=== PATIENT | male | born 1940 | race Caucasian/White ===

== ENCOUNTER 2019-01-06 08:59 | Day surgery (SDC) | payer MEDICARE, OTHER ==
[2019-01-06] VITALS (8 sets, daily range): BP systolic 113–142; BP diastolic 64–87
[~2019-01-06] VITALS: Ht 175.3 cm; Wt 71.1 kg
[2019-01-06] MEDS ORDERED: sod bicarbonate 150mEq in D5W 1,150 ML IV ONE (09:30)
[2019-01-06] MEDS ORDERED: diphenhydrAMINE 25mg capsule PO PRN (09:30)
[2019-01-06 09:52] LABS: BASOPHILS # (AUTO) 0.1 X10'3 (0-0.2); BASOPHILS % (AUTO) 0.8 % (0-1); EOSINOPHILS # (AUTO) 0.1 X10'3 (0-0.9); EOSINOPHILS % (AUTO) 0.7 % (0-6); HEMATOCRIT 43.6 % (42.0-52.0); HEMOGLOBIN 14.6 g/dl (14.0-17.9); LYMPHOCYTES # (AUTO) 0.9 X10'3 (1.1-4.8); MEAN CORPUSCULAR HEMOGLOBIN 33.4 PG (27.0-31.0); MEAN CORPUSCULAR HGB CONC 33.5 g/dL (33.0-36.5); MEAN CORPUSCULAR VOLUME 99.5 FL (78-98); MEAN PLATELET VOLUME 7.7 FL (7.4-10.4); MONOCYTES # (AUTO) 0.5 X10'3 (0-0.9); MONOCYTES % (AUTO) 7.3 % (2-12); NEUTROPHILS # (AUTO) 5.4 X10'3 (1.8-7.7); NEUTROPHILS % (AUTO) 78.2 % (42-75); PLATELET COUNT 266 X10'3 (140-440); RED BLOOD COUNT 4.39 X10'6 (4.70-6.10); RED CELL DISTRIBUTION WIDTH 13.4 % (11.5-14.5); WHITE BLOOD COUNT 6.9 X10'3 (4.5-11.0)
[2019-01-06 09:56] LABS: ALBUMIN 3.4 G/DL (3.4-5.0); ANION GAP 9 (8-16); BLOOD UREA NITROGEN 18 MG/DL (7-18); BUN/CREATININE RATIO 19.1 (5.4-32.0); CALCIUM 9.2 MG/DL (8.5-10.1); CHLORIDE 102 MMOL/L (99-107); CREATININE 0.94 MG/DL (0.60-1.10); GLUCOSE 110 MG/DL (70-104); MAGNESIUM 1.9 MG/DL (1.5-2.4); POTASSIUM 3.9 MMOL/L (3.5-5.1); SODIUM 139 MMOL/L (135-145); TOTAL CARBON DIOXIDE 28.4 MMOL/L (24-32); eGFR 77 ML/MIN
[2019-01-06 09:57] LABS: PROTHROMBIN TIME 10.3 SECONDS (9.0-12.0)
[2019-01-06] MEDS ORDERED: CALC-1140 PO (10:05)
[2019-01-06] MEDS ORDERED: CARB1TAB23 PO (10:05)
[2019-01-06] MEDS ORDERED: CHOL10002 PO (10:05)
[2019-01-06] MEDS ORDERED: DULO60CA45 PO (10:05)
[2019-01-06] MEDS ORDERED: POLY17PO10 PO (10:05)
[2019-01-06] MEDS ORDERED: FISH1CAP15 PO (10:05)
[2019-01-06] MEDS ORDERED: ASPI-1265 PO (10:05)
[2019-01-06] MEDS ORDERED: midazolam 2 mg/2 ml injection ONE (10:36)
[2019-01-06] MEDS ORDERED: iohexol 350 MG/ML 50ML vial IV ONE (10:37)
[2019-01-06] MEDS ORDERED: LIDOcaine 1% (10mg/ml)w/preservative injection 20ml MDV ONE (10:37)
[2019-01-06] MEDS ORDERED: iohexol 350MG/ML 100ml bottle IV ONE (10:37)
[2019-01-06] MEDS ORDERED: fentaNYL/PF 50MCG/1 ML 2ML syringe ONE (10:37)
[2019-01-06] MEDS ORDERED: heparin 1,000unit/ml 10ml vial 10 ML ONE (11:12)
== END 2019-01-06 14:50 | disposition home or self-care (01) ==
LOC: SSTAY O 08:59
PROVIDERS: ATTEND Internal Medicine Cardiovascular Disease
DX: R07.2 Precordial pain (principal); R06.00 Dyspnea, unspecified; I42.0 Dilated cardiomyopathy; I35.1 Nonrheumatic aortic (valve) insufficiency; I44.7 Left bundle-branch block, unspecified; G20 Parkinson's disease; Z98.890 Other specified postprocedural states; Z79.82 Long term (current) use of aspirin; Z79.899 Other long term (current) drug therapy; Z86.73 Personal history of transient ischemic attack (TIA), and cerebral infarction without residual deficits
CPT/HCPCS: 36415; 80048; 83735; 85025; 85610; 93005; 93458; 99152; 99153; A6257; J1644; J2001; J2250; J3010; Q0163; Q9967; A4620; C1760; C1769; C1894

== ENCOUNTER 2019-01-25 09:05 | Day surgery (SDC) | payer MEDICARE, OTHER ==
[2019-01-25] VITALS (7 sets, daily range): BP systolic 94–146; BP diastolic 50–90
[~2019-01-25 09:05] MED LIST: ASPI-1265 PO; CALC-1140 PO; CARB1TAB23 PO; CHOL10002 PO; DULO60CA45 PO; FISH1CAP15 PO; POLY17PO10 PO
[2019-01-25] MEDS ORDERED: vancomycin 1,000mg inj ONE ×2 (10:27→11:22)
[2019-01-25] MEDS ORDERED: midazolam 2 mg/2 ml injection ONE ×3 (10:27→12:15)
[2019-01-25] MEDS ORDERED: lidocaine 1%/epinephrine 1:100,000 injection 50ml vial ONE (10:27)
[2019-01-25] MEDS ORDERED: fentaNYL/PF 50MCG/1 ML 2ML syringe ONE ×2 (10:27→12:11)
[2019-01-25] MEDS ORDERED: cefazolin/dext.iso 2gm/50ml 50 ML IV ONE (10:28)
[2019-01-25] MEDS ORDERED: iohexol 350 MG/ML 50ML vial IV ONE (10:28)
[2019-01-25 10:36] LABS: BASOPHILS # (AUTO) 0.1 X10'3 (0-0.2); BASOPHILS % (AUTO) 0.8 % (0-1); EOSINOPHILS # (AUTO) 0.1 X10'3 (0-0.9); EOSINOPHILS % (AUTO) 0.8 % (0-6); HEMATOCRIT 41.6 % (42.0-52.0); HEMOGLOBIN 14.2 g/dl (14.0-17.9); LYMPHOCYTES # (AUTO) 0.8 X10'3 (1.1-4.8); LYMPHOCYTES % (AUTO) 9.5 % (21-51); MEAN CORPUSCULAR HEMOGLOBIN 33.8 PG (27.0-31.0); MEAN CORPUSCULAR VOLUME 99.4 FL (78-98); MEAN PLATELET VOLUME 7.6 FL (7.4-10.4); MONOCYTES # (AUTO) 0.5 X10'3 (0-0.9); MONOCYTES % (AUTO) 5.8 % (2-12); NEUTROPHILS # (AUTO) 6.6 X10'3 (1.8-7.7); NEUTROPHILS % (AUTO) 83.1 % (42-75); PLATELET COUNT 232 X10'3 (140-440); RED BLOOD COUNT 4.19 X10'6 (4.70-6.10); RED CELL DISTRIBUTION WIDTH 13.4 % (11.5-14.5)
[2019-01-25 10:43] LABS: ALBUMIN 3.3 G/DL (3.4-5.0); ANION GAP 6 (8-16); BLOOD UREA NITROGEN 19 MG/DL (7-18); BUN/CREATININE RATIO 22.9 (5.4-32.0); CALCIUM 9.4 MG/DL (8.5-10.1); CHLORIDE 104 MMOL/L (99-107); CREATININE 0.83 MG/DL (0.60-1.10); GLUCOSE 107 MG/DL (70-104); POTASSIUM 3.9 MMOL/L (3.5-5.1); SODIUM 138 MMOL/L (135-145); eGFR 89 ML/MIN
[2019-01-25 10:56] LABS: PROTHROMBIN TIME 10.4 SECONDS (9.0-12.0)
[2019-01-25] MEDS ORDERED: normal saline 500ml IV soln 500 ML IV SCH (13:45)
== END 2019-01-25 15:15 | disposition home or self-care (01) ==
LOC: SSTAY O 09:05
PROVIDERS: ATTEND Internal Medicine Cardiovascular Disease
DX: I44.7 Left bundle-branch block, unspecified (principal); I42.0 Dilated cardiomyopathy; G20 Parkinson's disease; Z72.89 Other problems related to lifestyle
CPT/HCPCS: 33225; 33249; 36415; 71046; 80048; 83735; 85025; 85610; 93005; 93641; 99152; 99153; C1777; C1882; C1887; C1898; C1900; J0690; J2250; J3010; J3370; J3490; J7030; Q9967; A4565; A4620; C1769; C1894; C1895